=== PATIENT | female | born 1975 | race Caucasian/White ===

== ENCOUNTER → 2016-07-21 | Outpatient (CLI) | payer MEDICAID ==
[~2016-07-21] MED LIST: ATIVAN1 MG PO; DITROPAN XL15 MG PO; ELAVIL50 MG PO; LOVENOX120 MG/0.1 SUBCUT; MYRBETRIQ25 MG PO; NORCO 325-5 MG1 TAB PO
== END | disposition short-term general hospital (02) ==
LOC: CLPAIN 09:56
DX: G89.4 Chronic pain syndrome (principal); R10.31 Right lower quadrant pain; Z79.891 Long term (current) use of opiate analgesic

== ENCOUNTER → 2016-08-18 | Outpatient (CLI) | payer MEDICAID | END | disposition short-term general hospital (02) | LOC: CLPAIN 09:18 | DX: R10.31 Right lower quadrant pain (principal); G89.4 Chronic pain syndrome; Z79.891 Long term (current) use of opiate analgesic ==

== ENCOUNTER 2016-10-06 11:57 | Day surgery (SDC) | payer MEDICAID ==
[~2016-10-06] VITALS: Ht 160 cm; Wt 63.0 kg
== END 2016-10-06 13:59 | disposition short-term general hospital (02) ==
LOC: SURGOP 11:57
PROC: 3E0T3BZ Introduction of Anesthetic Agent into Peripheral Nerves and Plexi, Percutaneous Approach (ICD-10-PCS; principal; 2016-10-06)
PROC: 3E0T33Z Introduction of Anti-inflammatory into Peripheral Nerves and Plexi, Percutaneous Approach (ICD-10-PCS; 2016-10-06)
DX: G89.4 Chronic pain syndrome (principal); R10.31 Right lower quadrant pain; G89.18 Other acute postprocedural pain; E78.00 Pure hypercholesterolemia, unspecified; G43.909 Migraine, unspecified, not intractable, without status migrainosus; Z88.8 Allergy status to other drugs, medicaments and biological substances; Z88.6 Allergy status to analgesic agent; Z88.5 Allergy status to narcotic agent; Z79.891 Long term (current) use of opiate analgesic; Z79.899 Other long term (current) drug therapy
CPT/HCPCS: J1040; J2250; J2795; J3010

== ENCOUNTER → 2016-10-20 | Outpatient (CLI) | payer MEDICAID | END | disposition short-term general hospital (02) | LOC: CLPAIN 11:31 | DX: R10.31 Right lower quadrant pain (principal); G89.4 Chronic pain syndrome; G57.81 Other specified mononeuropathies of right lower limb; G90.50 Complex regional pain syndrome I, unspecified ==